=== PATIENT | male | born 1970 | race Caucasian/White ===

== ENCOUNTER 2016-09-13 14:52 | Emergency (ER) | payer SELFPAY ==
--- NOTE | 2016-09-13 15:34 | ER NURSING DOCUMENTATION ---
Nurse's Notes [facility] Name:Spencer Richards Age:46 yrs Sex:Male :1970 Arrival Date:09/13/2016 Time:14:52 Bed4 Private MD: Diagnosis:Inguinal Hernia Presentation: 09/13 14:59 Presenting complaint: Patient states: pt states he has had left lower groin pain for st four days. It started after lifting heavy boxes. Transition of care: Home. 14:59 Acuity: JONY 4 st 14:59 Method Of Arrival: Private Vehicle st Triage Assessment: 15:01 General: Appears in no apparent distress, Behavior is cooperative. Pain: Complains of st pain in left femoral area Pain currently is 6 out of 10 on a pain scale. Pain began four days ago. GI: Abdomen is flat, non- distended Abd is soft and non tender X 4 quads. bulge noted in inguinal area. 15:03 : Denies any urinary symptoms. st Historical: - Allergies: Compazine; - Home Meds: 1. None - PMHx: None; - PSHx: None; - Tetanus: unknown. - Ebola Screening: : Patient denies exposure to infectious person. Patient denies travel to an Ebola-affected area in the 21 days before illness onset. . - Immunization history: Unable to Obtain. - Social history: Smoking status: Patient uses tobacco products, current every day smoker. Patient uses alcohol occasionally. Patient/guardian denies using marijuana. Screenin:02 Infectious Disease Risk None. Abuse screen: Denies threats or abuse. Denies injuries st from another. pt feels safe at home. Nutritional screening: No deficits noted. Vital Signs: 14:59 BP 171 / 103; Pulse 88; Resp 20; Temp 98.2(O); Pulse Ox 95% on R/A; Weight 81.65 kg arc (R); Height 6 ft. 0 in. (182.88 cm) (R); Pain 6/10; 14:59 Body Mass Index 24.41 (81.65 kg, 182.88 cm) arc ED Course: 14:54 Patient arrived in ED. arc 14:59 Mary Tellez, RN is Primary Nurse. st 15:[address] 15:02 Valuables Remains with patient. st 15:11 Tino Perrin MD is Attending Physician. be 15:14 Graeme Muñoz MD is Referral Physician. be Administered Medications: No medications were administered Outcome: 15:14 Discharge ordered by . be 15:20 Discharged to home ambulatory. st 15:20 Condition: stable 15:20 Discharge instructions given to patient, Instructed on discharge instructions, follow up and referral plans. 15:21 Patient [address] the ED[address] st 07 16:56 Discharge F/U Call: Unable to reach: no answer lb Signatures: Mary Tellez, RN RN Tino Perrin MD MD be Chew, Amelia, Joaquín Reg Ruth Gaitan lb
--- NOTE | 2016-09-13 15:37 | ER PHYSICIAN DOCUMENTATION ---
Physician Documentation [facility] Name:Spencer Richards Age:46 yrs Sex:Male :1970 Arrival Date:09/13/2016 Time:14:52 Bed4 Private MD: Tino Osullivan Disposition: 09/13/16 15:14 Discharged to Home/Self Care. Impression: Inguinal Hernia. - Condition is Good. - Discharge Instructions: HERNIA (Inguinal, Ventral, Umbil). - Work release form, Medical Reconciliation form form. - Follow up: Private Physician; When: 2 - 3 days; Reason: Recheck today's complaints. Follow up: Graeme Muñoz MD; When: 2 - 3 days; Reason: Recheck today's complaints. - Problem is new. - Symptoms have improved. HPI: 09/13 15:17 This 46 yrs old Male presents to ER via Private Vehicle with complaints of be Groin Pain. 15:17 The patient presents with tenderness, that is moderate, of the left inguinal area. be Onset: The symptom(s)/episode began/occurred yesterday. Modifying factors: The symptoms are alleviated by remaining still, supine position, the symptoms are aggravated by movement, heavy lifting. Associated signs and symptoms: Pertinent negatives: dysuria, hematuria, nausea, vomiting. Historical: - Allergies: Compazine; - Home Meds: 1. None - PMHx: None; - PSHx: None; - Tetanus: unknown. - Ebola Screening: : Patient denies exposure to infectious person. Patient denies travel to an Ebola-affected area in the 21 days before illness onset. . - Immunization history: Unable to Obtain. - Social history: Smoking status: Patient uses tobacco products, current every day smoker. Patient uses alcohol occasionally. Patient/guardian denies using marijuana. ROS: 15:19 : Positive for left inguinal pain. be 15:19 All other systems are negative. Exam: 15:19 Abdomen/GI: Exam negative for acute changes, discomfort, distension, masses, pulsatile be mass, tenderness. 15:19 Back: pain, is absent, ROM is normal. 15:19 : CVA tenderness, is absent, Male external genitalia: tenderness, is palpated in the left inguinal area, that is mild, with sliding inguinal hernia, Bladder: is normal. 15:20 Constitutional: This is a well developed, well nourished patient who is awake, alert, be and in no acute distress. Vital Signs: 14:59 BP 171 / 103; Pulse 88; Resp 20; Temp 98.2(O); Pulse Ox 95% on R/A; Weight 81.65 kg arc (R); Height 6 ft. 0 in. (182.88 cm) (R); Pain 6/10; 14:59 Body Mass Index 24.41 (81.65 kg, 182.88 cm) arc MDM: 15:12 Patient medically screened. be 15:20 Differential diagnosis: nonspecific abdominal pain, hernia, ureterolithiasis. be Dispensed Medications: No medications were administered Signatures: Mary Tellez RN RN st Elliott, Brian, MD MD be
== END 2016-09-13 15:21 | disposition home or self-care (01) ==
LOC: ER 14:52
DX: K40.90 Unilateral inguinal hernia, without obstruction or gangrene, not specified as recurrent (principal)
CPT/HCPCS: 99281